=== PATIENT | female | born 1935 | race Caucasian/White ===

== ENCOUNTER 2020-04-20 19:53 | Inpatient (IN) | payer OTHER ==
--- NOTE | 2020-04-20 20:05 | PDOC ---
History of Present Illness - General Chief Complaint: Pain, Acute Stated Complaint: LEFT CHEST PAIN Time Seen by Provider: 04/20/20 20:00 History Source: Patient Exam Limitations: No Limitations - History of Present Illness Initial Comments: 84 yo F history GERD, HTN presents with L-sided chest pain for the past 1 week. It is unchanged with position, activity. Radiates to L shoulder. She has had associated nausea, but no vomiting. No diaphoresis. Pain has been constant. She had numbness in her L arm earlier today, now resolved. No prior similar symptoms in the past. No prior cardiac cath or echo. She had an EKG that was reportedly normal 1 week ago. PCP is in the [facility]. Past History - Medical History Allergies/Adverse Reactions: Allergies Allergy/AdvReac Type Severity Reaction Status Date / Time No Known Allergies Allergy Verified 04/20/20 19:54 Home Medications: Ambulatory Orders Esomeprazole Magnesium [Nexium] 0 mg PO DAILY 04/20/20 Nebivolol HCl [Bystolic] 0 mg PO DAILY 04/20/20 COPD: No CHF: No HTN: Yes - Reproductive History Is Patient Now?: No - Psycho-Social/Smoking History Smoking History: Never smoked - Substance Abuse Hx (Audit-C & DAST Scrn) How often the patient has a drink containing alcohol: Never Score: In Men: 4 or > Positive; In Women: 3 or > Positive: 0 Screen Result (Pos requires Nsg. Audit-10AR): Negative In the last yr the pt used illegal drug/Rx for NonMed reason: No Score: Yes response is considered Positive: 0 Screen Result (Positive result requires Nsg. DAST-10): Negative Review of Systems - Review of Systems Able to Perform ROS?: Yes Comments:: GENERAL/CONSTITUTIONAL: No fever or chills. No weakness. HEAD, EYES, EARS, NOSE AND THROAT: No change in vision. No ear pain or discharge. No sore throat. CARDIOVASCULAR: +Chest pain. No shortness of breath. RESPIRATORY: No cough, wheezing, or hemoptysis. GASTROINTESTINAL: +Nausea. No vomiting, diarrhea or constipation. GENITOURINARY: No dysuria, frequency, or change in urination. MUSCULOSKELETAL: No joint or muscle swelling or pain. No neck or back pain. SKIN: No rash. NEUROLOGIC: No headache, vertigo, loss of consciousness, or change in stre ngth/sensation. ENDOCRINE: No increased thirst. No abnormal weight change. HEMATOLOGIC/LYMPHATIC: No anemia, easy bleeding, or history of blood clots. ALLERGIC/IMMUNOLOGIC: No hives or skin allergy. *Physical Exam - Vital Signs Last Vital Signs Temp Pulse Resp BP Pulse Ox 98.0 F 77 18 156/80 100 04/20/20 19:54 04/20/20 19:54 04/20/20 19:54 04/20/20 20:04 04/20/20 19:54 - Physical Exam GENERAL: Awake, alert, and fully oriented, in no acute distress HEAD: No signs of trauma EYES: PERRLA, EOMI, sclera anicteric, conjunctiva clear ENT: Auricles normal inspection, hearing grossly normal, nares patent, oropharynx clear without exudates. Moist mucosa NECK: Normal ROM, supple, no lymphadenopathy, JVD, or masses LUNGS: Breath sounds equal, clear to auscultation bilaterally. No wheezes, and no crackles HEART: Regular rate and rhythm, normal S1 and S2, no murmurs, rubs or gallops ABDOMEN: Soft, nontender, normoactive bowel sounds. No guarding, no rebound. No masses EXTREMITIES: Normal range of motion, no edema. No clubbing or cyanosis. No cords, erythema, or tenderness NEUROLOGICAL: Cranial nerves II through XII grossly intact. Normal speech, normal gait. Motor and sensation intact SKIN: Warm, dry, normal turgor, no rashes or lesions noted. Heart Score/ECG Review - History History: Highly suspicious - Electrocardiogram EKG: Normal - Age Age: >/= 65 - Risk Factors Risk Factors Heart Score: Yes Hx Hypertension Based on the list above the patient has:: 1-2 risk factors - Troponin Troponin: 1-3x normal limit - Score Heart Score - Total: 6 - ECG Intrepretation Comment:: EKG read 20:14- NSR 78 bpm, no acute ST/T changes ED Treatment Course - LABORATORY CBC & Chemistry Diagram: 04/20/20 20:30 04/20/20 20:17 Medical Decision Making - Medical Decision Making 04/20/20 20:42 Patient given an ASA in the ED based on cardiac risk factors and the description of her pain, as well as that it is ongoing. Await labs. Likely admission. 04/20/20 21:18 Troponin noted to be 0.25. Will discuss case with hospitalist for admission. 04/20/20 21:52 Case d/w Dr. Mcclelland, cardiology, via phone. I will give full dose of aspirin. Second troponin to be drawn at 11pm, will contact her if it is trending upward. D/w hospitalist. 04/20/20 23:34 Second troponin pending. EMS has just arrived. 04/20/20 23:56 Second troponin 0.54, discussed with Dr. Mcclelland, patient is still ok to go to [facility]. She recommended nitro for ongoing chest pain if it continues. her BP has dropped to 150s since she came to ED, will not give nitro at the moment to avoid a precipitous drop in the ambulance. EMS is at bedside. Discharge - Discharge Information Problems reviewed: Yes Clinical Impression/Diagnosis: NSTEMI (non-ST elevated myocardial infarction) Chest pain Qualifiers: Chest pain type: unspecified Qualified Code(s): R07.9 - Chest pain, unspecified Condition: Stable - Admission Yes - Follow up/Referral - Patient Discharge Instructions - Post Discharge Activity
--- OUTSIDE RECORDS SUMMARY | 2020-04-20 20:14 | XMS ---
:1935 Author Organization [facility] Support Name Relationship Address Phone RE Unavailable Unavailable Unavailable CARLITOS BOBBY SON [address] [place] [address] Re-disclosure Warning The records that you are about to access may contain information from federally- assisted alcohol or drug abuse programs. If such information is present, then the following federally mandated warning applies: This information has been disclosed to you from records protected by federal confidentiality rules (42 CFR part 2). The federal rules prohibit you from making any further disclosure of this information unless further disclosure is expressly permitted by the written consent of the person to whom it pertains or as otherwise permitted by 42 CFR part 2. A general authorization for the release of medical or other information is NOT sufficient for this purpose. The Federal rules restrict any use of the information to criminally investigate or prosecute any alcohol or drug abuse patient.The records that you are about to access may contain highly sensitive health information, the redisclosure of which is protected by Article 27-F of the [facility] Public Health law. If you continue you may haveaccess to information: Regarding HIV / AIDS; Provided by facilities licensed or operated by the [facility] Office of Mental Health; or Provided by the [facility] Office for People With Developmental Disabilities. If such information is present, then the following [facility] mandated warning applies: This information has been disclosed to you from confidential records which are protected by state law. State law prohibits you from making any further disclosure of this information without the specific written consent of the person to whom it pertains, or as otherwise permitted by law. Any unauthorized further disclosure in violation of state law may result in a fine or prison sentence or both. A general authorization for the release of medical or other information is NOT sufficient authorization for further disclosure. Insurance Providers Payer name Policy type Policy ID Covered Covered republican's Policy P freda / Coverage republican ID relationship to [employer] Inf ormation type escobar MEDICAID [id number] SP [id number] MEDICARE [id number]
[2020-04-20] MEDS ORDERED: ASPIRIN 81 MG CHEWABLE TABLETS ONE ×2 (20:28→21:52)
[2020-04-20] MEDS ORDERED: ASPIRIN 81 MG CHEWABLE TABLETS PO ONE ×2 (20:28→21:28)
[2020-04-20 20:33] LABS: BASO % 0.7 % (0-2.0); EOS % 0.9 % (0-4.5); HEMATOCRIT 31.7 % (32.4-45.2); HEMOGLOBIN 10.7 GM/dl (10.7-15.3); LYMPH % 22.5 % (8-40); MCH 32.1 pg (25.7-33.7); MCHC 33.8 g/dl (32.0-36.0); MEAN CELL VOLUME 94.9 fl (80-96); MONO % 8.1 % (3.8-10.2); NEUT % 67.8 % (42.8-82.8); PLATELET COUNT 213 K/MM3 (134-434); RBC 3.34 M/mm3 (3.60-5.2); RDW 13.1 % (11.6-15.6); WHITE BLOOD COUNT 4.9 K/mm3 (4.0-10.8)
[2020-04-20 21:00] LABS: BILIRUBIN,TOTAL 0.5 mg/dl (0.2-1); CALCIUM 9.6 mg/dl (8.5-10); POTASSIUM 4.1 mmol/L (3.5-5.1); TOT PROT 7.5 g/dl (6.4-8.2)
--- OUTSIDE RECORDS SUMMARY | 2020-04-21 00:34 | XMS ---
:1935 Author Organization [facility] Support Name Relationship Address Phone RE Unavailable Unavailable Unavailable CARLITOS BOBBY SON [address] [place] [address] Re-disclosure Warning The records that you are [...] is protected by Article 27-F of the [facility] Public Health law. If you continue you may haveaccess to information: Regarding HIV / AIDS; Provided by facilities licensed or operated by the [facility] Office of Mental Health; or Provided by the [facility] Office for People With Developmental Disabilities. If such information is present, then the following [facility] mandated warning applies: This information has been [...] law may result in a fine or retirement sentence or both. A general authorization for the release of medical or other information is NOT sufficient authorization for further disclosure. Insurance Providers Payer name Policy type Policy ID Covered Covered constitution party's Policy P freda / Coverage constitution party ID relationship to [employer] Inf ormation type escobar MEDICARE [id number] SP [id number] MEDICAID [id number] SP [id number] MEDICARE [id number]
--- NOTE | 2020-04-21 00:44 | HP ---
CHIEF COMPLAINT: Chest Pain HISTORY OF PRESENT ILLNESS: 84 year old female with known history of GERD, hypertension who presents to the ED complaining of left sided chest pain of one week's duration. Pain is described as crampy, on and off with radiation to the left shoulder and arm, not associated with nausea, vomtiing, diaphoreiss. She had an episode of numbness of the left arm today as well. She had an EKG last week which was reported as normal. Recent Travel: none PAST MEDICAL HISTORY:as above PAST SURGICAL HISTORY: lipoma resection Family history; both parents over 50 years ago of natural causes (specific etiologies unknown to patient) Social History: Smoking:denies Alcohol:denies Drugs: denies Allergies No Known Allergies Allergy (Verified 04/20/20 19:54) HOME MEDICATIONS: Home Medications Medication Instructions Recorded Esomeprazole Magnesium [Nexium] 0 mg PO DAILY 04/20/20 Nebivolol HCl [Bystolic] 0 mg PO DAILY 04/20/20 REVIEW OF SYSTEMS CONSTITUTIONAL: Absent: fever, chills, diaphoresis, generalized weakness, malaise, loss of appetite, weight change HEENT: Absent: rhinorrhea, nasal congestion, throat pain, throat swelling, difficulty swallowing, mouth swelling, ear pain, eye pain, visual changes CARDIOVASCULAR: Absent: chest pain, syncope, palpitations, irregular heart rate, lightheadedness, peripheral edema RESPIRATORY: Absent: cough, shortness of breath, dyspnea with exertion, orthopnea, wheezing, stridor, hemoptysis GASTROINTESTINAL: Absent: abdominal pain, abdominal distension, nausea, vomiting, diarrhea, constipation, melena, hematochezia GENITOURINARY: Absent: dysuria, frequency, urgency, hesitancy, hematuria, flank pain, genital pain MUSCULOSKELETAL: Absent: myalgia, arthralgia, joint swelling, back pain, neck pain SKIN: Absent: rash, itching, pallor HEMATOLOGIC/IMMUNOLOGIC: Absent: easy bleeding, easy bruising, lymphadenopathy, frequent infections ENDOCRINE: Absent: unexplained weight gain, unexplained weight loss, heat intolerance, cold intolerance NEUROLOGIC: Absent: headache, focal weakness or paresthesias, dizziness, unsteady gait, se izure, mental status changes, bladder or bowel incontinence PSYCHIATRIC: Absent: anxiety, depression, suicidal or homicidal ideation, hallucinations. PHYSICAL EXAMINATION Vital Signs - 24 hr 04/20/20 04/20/20 04/20/20 19:54 20:04 22:00 Temperature 98.0 F 98.1 F Pulse Rate 77 Pulse Rate [ 78 Left] Respiratory 18 23 H Rate Blood Pressure 190/90 H Blood Pressure 156/80 [Left Arm] Blood Pressure 149/70 [Right Arm] O2 Sat by Pulse 100 99 Oximetry (%) GENERAL: Awake, alert, and fully oriented, in no acute distress. HEAD: Normal with no signs of trauma. EYES: Pupils equal, round and reactive to light, extraocular movements intact, sclera anicteric, conjunctiva clear. No lid lag. EARS, NOSE, THROAT: , oropharynx clear without exudates. Moist mucous membranes. NECK: Normal range of motion, supple without lymphadenopathy, JVD, or masses. LUNGS: Breath sounds equal, clear to auscultation bilaterally. No wheezes, and no crackles. No accessory muscle use. HEART: Regular rate and rhythm, normal S1 and S2 without murmur, rub or gallop. ABDOMEN: Soft, nontender, not distended, normoactive bowel sounds, no guarding, no rebound, no masses. No hepatomegaly or splenomegaly. MUSCULOSKELETAL: Normal range of motion at all joints. No bony deformities or tenderness. No CVA tenderness. UPPER EXTREMITIES: 2+ pulses, warm, well-perfused. No cyanosis. No clubbing. No peripheral edema. LOWER EXTREMITIES: 2+ pulses, warm, well-perfused. No calf tenderness. No peripheral edema. NEUROLOGICAL: Cranial nerves II-XII intact. Normal speech. Normal gait. PSYCHIATRIC: Cooperative. Good eye contact. Appropriate mood and affect. SKIN: Warm, dry, normal turgor, no rashes or lesions noted, normal capillary refill. Laboratory Results - last 24 hr 04/20/20 04/20/20 04/20/20 20:17 20:17 20:30 WBC 4.9 RBC 3.34 L Hgb 10.7 Hct 31.7 L MCV 94.9 MCH 32.1 MCHC 33.8 RDW 13.1 Plt Count 213 MPV 9.0 Absolute Neuts (auto) 3.3 Neutrophils % 67.8 Lymphocytes % 22.5 Monocytes % 8.1 Eosinophils % 0.9 Basophils % 0.7 Sodium 135 L Potassium 4.1 Chloride 103 Carbon Dioxide 24 Anion Gap 8 BUN 24.0 H Creatinine 1.0 Est GFR (CKD-EPI)AfAm 60.76 Est GFR (CKD-EPI)NonAf 52.42 Random Glucose 107 H Calcium 9.6 Total Bilirubin 0.5 AST 27 ALT 20 Alkaline Phosphatase 74 Troponin I 0.25 H Total Protein 7.5 Albumin 4.0 04/20/20 22:58 WBC RBC Hgb Hct MCV MCH MCHC RDW Plt Count MPV Absolute Neuts (auto) Neutrophils % Lymphocytes % Monocytes % Eosinophils % Basophils % Sodium Potassium Chloride Carbon Dioxide Anion Gap BUN Creatinine Est GFR (CKD-EPI)AfAm Est GFR (CKD-EPI)NonAf Random Glucose Calcium Total Bilirubin AST ALT Alkaline Phosphatase Troponin I 0.54 H Total Protein Albumin ASSESSMENT/PLAN: 1. ACS - troponins are trending up - patient chest pain free - EKG - continuous cardiac monitoring - Dr Dilia Mcclelland already consulted and aware, will see patient in am - cont bystolic - lipid profile 2. GERD - cont PPI 3. Lovenox for DVT prophylaxis Visit type - Medication Review Med list reviewed for High Risk Meds patients 65 and older: Yes - Emergency Visit Emergency Visit: Yes ED Registration Date: 04/21/20 Care time: The patient presented to the Emergency Department on the above date and was hospitalized for further evaluation of their emergent condition. - New Patient This patient is new to me today: Yes Date on this admission: 04/27/20 - Critical Care Critical Care patient: No
[2020-04-21 01:01] VITALS: BMI 22.1
[2020-04-21] MEDS ORDERED: PNEUMOC 13-VAL CONJ-DIP CRM/PF 0.5 ML DISP.SYRIN IM ONE (01:01)
[2020-04-21] MEDS ORDERED: PANTOPRAZOLE 40 MG TABLET PO SCH (07:00)
[2020-04-21] MEDS ORDERED: PT OWN MED DRAWER 7, Y5N ONE (09:15)
[2020-04-21] MEDS ORDERED: ENOXAPARIN NA (PORCINE) 40 MG/0.4 ML DISP.SYRIN SQ SCH (10:00)
[2020-04-21] MEDS ORDERED: NEBIVOLOL 5 MG TABLET (FP) PO SCH (10:00)
[2020-04-21 11:02] LABS: HEMATOCRIT 32.9 % (32.4-45.2); HEMOGLOBIN 11.3 GM/dL (10.7-15.3); MCH 32.3 pg (25.7-33.7); MCHC 34.4 g/dl (32.0-36.0); MEAN CELL VOLUME 93.7 fl (80-96); MEAN PLT VOLUME 10.9 fl (7.5-11.1); PLATELET COUNT 184 K/MM3 (134-434); RBC 3.51 M/mm3 (3.60-5.2); RDW 13.6 % (11.6-15.6); WHITE BLOOD COUNT 3.7 K/mm3 (4.0-10.0)
[2020-04-21 11:41] LABS: ANION GAP 6 MMOL/L (8-16); BLOOD UREA NITROGEN 15.5 mg/dL (7-18); CALCIUM 9.4 mg/dL (8.5-10.1); CHLORIDE 107 mmol/L (98-107); CO2 26 mmol/L (21-32); CREATININE 0.8 mg/dL (0.55-1.3); GLUCOSE,RANDOM 79 mg/dL (74-106); POTASSIUM 4.1 mmol/L (3.5-5.1); SODIUM 140 mmol/L (136-145)
--- NOTE | 2020-04-21 11:52 | EKG ---
Test Reason : Blood Pressure : / mmHG Vent. Rate : 078 BPM Atrial Rate : 078 BPM P-R Int : 162 ms QRS Dur : 082 ms QT Int : 364 ms P-R-T Axes : 073 -02 029 degrees QTc Int : 414 ms NORMAL SINUS RHYTHM NORMAL ECG NO PREVIOUS ECGS AVAILABLE Confirmed by ANNEMARIE HUERTAS MD ([id number]) on 04/21/2020 11:51:59 AM Referred By: KALINA FAUST Confirmed By:ANNEMARIE HUERTAS MD
[2020-04-21] MEDS ORDERED: REGADENOSON 0.4 MG/5 ML PRE-FILLED SYRINGE IVPUSH ONE ×2 (12:04→12:30)
--- NOTE | 2020-04-21 12:27 | ECHO ---
Name: KANU MICHELLE Exam:Adult Echocardiogram Study Date: 04/21/2020 11:26 AM Age: 84 yrs Height: 66 in Weight: 136 lb BSA: 1.7 m2 MMode/2D Measurements & Calculations IVSd: 1.1 cm Ao root diam: 2.4 cm LVIDd: 3.5 cm LA dimension: 3.3 cm LVIDs: 2.5 cm LVPWd: 1.2 cm LVPWs: 1.7 cm EDV(Teich): 49.4 ml ESV(Teich): 21.8 ml LVOT diam: 1.9 cm LAV (MOD-bp): 50.0 ml TAPSE: 1.5 cm RV S Reilly: 8.4 cm/sec Doppler Measurements & Calculations MV V2 max: 96.5 cm/sec MV E max reilly: 58.2 cm/sec MV max P.7 mmHg MV A max reilly: 85.9 cm/sec MV V2 mean: 69.9 cm/sec MV E/A: 0.68 MV mean P.1 mmHg MV dec time: 0.20 sec MV V2 VTI: 31.8 cm Ao V2 max: 133.5 cm/sec AI max reilly: 438.6 cm/sec Ao max P.1 mmHg AI max P.0 mmHg AI P1/2t: 486.7 msec AI dec slope: 264.0 cm/sec2 CHRISTOPHER(V,D): 2.2 cm2 LV V1 max P.1 mmHg MR max reilly: 319.7 cm/sec LV V1 max: 100.7 cm/sec MR max P.9 mmHg TR max reilly: 207.1 cm/sec PA V2 max: 97.1 cm/sec TR max P.2 mmHg PA max P.8 mmHg Med Peak E' Reilly: 5.5 cm/sec Med E/e': 10.6 Lat Peak E' Reilly: 7.9 cm/sec Lat E/e': 7.4 Procedure A complete two-dimensional transthoracic echocardiogram was performed (2D, M-mode, Doppler and color flow Doppler). Left Ventricle The left ventricle is normal in size. Left ventricular systolic function is normal. Ejection Fraction = 60- 65%. No regional wall motion abnormalities noted. Right Ventricle The right ventricle is normal size. The right ventricular systolic function is normal. Atria The left atrial size is normal. Right atrial size is normal. Mitral Valve There is mild mitral annular calcification. There is mild mitral regurgitation. Tricuspid Valve The tricuspid valve is normal in structure and function. There is mild tricuspid regurgitation. Aortic Valve There is mild aortic sclerosis.;. Mild aortic regurgitation. Pulmonic Valve The pulmonic valve is not well visualized. Great Vessels The aortic root is normal size. Pericardium/Pleura There is no pericardial effusion. Interpretation Summary The left ventricle is normal in size. Left ventricular systolic function is normal. No regional wall motion abnormalities noted. Ejection Fraction = 60-65%. There is mild mitral annular calcification. There is mild mitral regurgitation. There is mild tricuspid regurgitation. There is mild aortic sclerosis. Mild aortic regurgitation. There is no pericardial effusion. Rickey Braun MD 04/21/2020 12:27 PM
--- NOTE | 2020-04-21 12:37 | CON.CARD ---
Cardiology Consult (text) - Consultation Consultation Note: cc: cp hpi: 84 f hx htn, gerd, here with cp. Past week she has noticed cp. Mild, left sided, feels like burning, moves to left shoulder, no associated sxs. No exertional sxs. Worse with pushing on chest wall. No hx hrt dz. No sob palps dizzy loc pnd orthopnea le edema. pmh: per hpi psh: none social: no tob fam: no premature cad ros: per hpi; all others nl meds: Home Medications Medication Instructions Recorded Esomeprazole Magnesium [Nexium] 0 mg PO DAILY 04/20/20 Nebivolol HCl [Bystolic] 0 mg PO DAILY 04/20/20 pe: Vital Signs Period Temp Pulse Resp BP Sys/Quispe Pulse Ox Last 24 Hr 97.8 F-98.8 F 65-85 14-23 117-190/51-90 95-100 nad no jvd rrr s1s2 no mrg cta bl nl eff aao3 no le e/c/c abd nt nd pos bs no jaundice diaphoresis pos dp pt no carotid bruits +chest wall tenderness Laboratory Last Values WBC 3.7 K/mm3 (4.0-10.0) L 04/21/20 06:05 RBC 3.51 M/mm3 (3.60-5.2) L 04/21/20 06:05 Hgb 11.3 GM/dL (10.7-15.3) 04/21/20 06:05 Hct 32.9 % (32.4-45.2) 04/21/20 06:05 MCV 93.7 fl (80-96) 04/21/20 06:05 MCH 32.3 pg (25.7-33.7) 04/21/20 06:05 MCHC 34.4 g/dl (32.0-36.0) 04/21/20 06:05 RDW 13.6 % (11.6-15.6) 04/21/20 06:05 Plt Count 184 K/MM3 (134-434) 04/21/20 06:05 MPV 10.9 fl (7.5-11.1) 04/21/20 06:05 Absolute Neuts (auto) 3.3 K/mm3 04/20/20 20:30 Neutrophils % 67.8 % (42.8-82.8) 04/20/20 20:30 Lymphocytes % 22.5 % (8-40) 04/20/20 20:30 Monocytes % 8.1 % (3.8-10.2) 04/20/20 20:30 Eosinophils % 0.9 % (0-4.5) 04/20/20 20:30 Basophils % 0.7 % (0-2.0) 04/20/20 20:30 Sodium 140 mmol/L (136-145) 04/21/20 06:05 Sodium Cancelled 04/21/20 06:05 Potassium 4.1 mmol/L (3.5-5.1) 04/21/20 06:05 Potassium Cancelled 04/21/20 06:05 Chloride 107 mmol/L (98-107) 04/21/20 06:05 Chloride Cancelled 04/21/20 06:05 Carbon Dioxide 26 mmol/L (21-32) 04/21/20 06:05 Carbon Dioxide Cancelled 04/21/20 06:05 Anion Gap 6 MMOL/L (8-16) L 04/21/20 06:05 Anion Gap Cancelled 04/21/20 06:05 BUN 15.5 mg/dL (7-18) 04/21/20 06:05 BUN Cancelled 04/21/20 06:05 Creatinine 0.8 mg/dL (0.55-1.3) 04/21/20 06:05 Creatinine Cancelled 04/21/20 06:05 Est GFR (CKD-EPI)AfAm 79.57 04/21/20 06:05 Est GFR (CKD-EPI)AfAm Cancelled 04/21/20 06:05 Est GFR (CKD-EPI)NonAf 68.66 04/21/20 06:05 Est GFR (CKD-EPI)NonAf Cancelled 04/21/20 06:05 Random Glucose 79 mg/dL (74-106) 04/21/20 06:05 Random Glucose Cancelled 04/21/20 06:05 Calcium 9.4 mg/dL (8.5-10.1) 04/21/20 06:05 Calcium Cancelled 04/21/20 06:05 Total Bilirubin 0.5 mg/dl (0.2-1) 04/20/20 20:17 AST 27 U/L (15-37) 04/20/20 20:17 ALT 20 U/L (13-61) 04/20/20 20:17 Alkaline Phosphatase 74 U/L (45-117) 04/20/20 20:17 Troponin I < 0.02 ng/ml (0.00-0.05) 04/21/20 06:05 Total Protein 7.5 g/dl (6.4-8.2) 04/20/20 20:17 Albumin 4.0 g/dl (3.4-5.0) 04/20/20 20:17 tele: sr ecg: sr nl intervals no ischemic changes cxr: clear a/p: 84 f hx htn, gerd, here with cp. cp, elevated trops: -atypical features -ecg, echo unremarkable -trop borderline with flat trend, not c/w acs -will eval further with nuclear stress test, if benign then ok for dc from cardiac pov htn: -stable, cont home bb gerd: -stable sxs
--- NOTE | 2020-04-21 13:42 | PN ---
Teaching Attending Note Name of Resident: Zoya Rollins ATTENDING PHYSICIAN STATEMENT I saw and evaluated the patient. I reviewed the resident's note and discussed the case with the resident. I agree with the resident's findings and plan as documented. SUBJECTIVE: No further CP. Feels well, eating OBJECTIVE: Afebrile, Hemodynamically Stable. Last Vital Signs Temp Pulse Resp BP Pulse Ox 98.8 F 85 18 124/51 L 100 04/21/20 09:27 04/21/20 09:27 04/21/20 09:27 04/21/20 09:27 04/21/20 09:27 HEENT - Atraumatic, Normocephalic. Heart - S1, S2, soft SM Lungs - clear to auscultation Abdomen - soft, non-tender. Bowel Sounds normal. Extremities - no edema, varicosities, no calf tenderness. Neuro - AAO x 3. Tone/Power normal. Laboratory Results - last 24 hr 04/20/20 04/20/20 04/20/20 20:17 20:17 20:30 WBC 4.9 RBC 3.34 L Hgb 10.7 Hct 31.7 L MCV 94.9 MCH 32.1 MCHC 33.8 RDW 13.1 Plt Count 213 MPV 9.0 Absolute Neuts (auto) 3.3 Neutrophils % 67.8 Lymphocytes % 22.5 Monocytes % 8.1 Eosinophils % 0.9 Basophils % 0.7 Sodium 135 L Potassium 4.1 Chloride 103 Carbon Dioxide 24 Anion Gap 8 BUN 24.0 H Creatinine 1.0 Est GFR (CKD-EPI)AfAm 60.76 Est GFR (CKD-EPI)NonAf 52.42 Random Glucose 107 H Calcium 9.6 Total Bilirubin 0.5 AST 27 ALT 20 Alkaline Phosphatase 74 Troponin I 0.25 H Total Protein 7.5 Albumin 4.0 04/20/20 04/21/20 04/21/20 22:58 06:05 06:05 WBC 3.7 L RBC 3.51 L Hgb 11.3 Hct 32.9 MCV 93.7 MCH 32.3 MCHC 34.4 RDW 13.6 Plt Count 184 MPV 10.9 Absolute Neuts (auto) Neutrophils % Lymphocytes % Monocytes % Eosinophils % Basophils % Sodium 140 Potassium 4.1 Chloride 107 Carbon Dioxide 26 Anion Gap 6 L BUN 15.5 Creatinine 0.8 Est GFR (CKD-EPI)AfAm 79.57 Est GFR (CKD-EPI)NonAf 68.66 Random Glucose 79 Calcium 9.4 Total Bilirubin AST ALT Alkaline Phosphatase Troponin I 0.54 H < 0.02 Total Protein Albumin 04/21/20 06:05 WBC RBC Hgb Hct MCV MCH MCHC RDW Plt Count MPV Absolute Neuts (auto) Neutrophils % Lymphocytes % Monocytes % Eosinophils % Basophils % Sodium Cancelled Potassium Cancelled Chloride Cancelled Carbon Dioxide Cancelled Anion Gap Cancelled BUN Cancelled Creatinine Cancelled Est GFR (CKD-EPI)AfAm Cancelled Est GFR (CKD-EPI)NonAf Cancelled Random Glucose Cancelled Calcium Cancelled Total Bilirubin AST ALT Alkaline Phosphatase Troponin I Total Protein Albumin Current Medications Generic Name Dose Route Start Last Admin Trade Name Freq PRN Reason Stop Dose Admin Enoxaparin Sodium 40 mg 04/21/20 10:00 04/21/20 09:26 Lovenox - SQ 40 mg DAILY ERIK Administration Nebivolol 5 mg 04/21/20 10:00 04/21/20 09:26 Bystolic - PO 5 mg DAILY ERIK Administration Pantoprazole Sodium 40 mg 04/21/20 07:00 04/21/20 06:24 Protonix - PO 40 mg ACBK ERIK Administration Pneumococcal 13-Valent Conj Vacc 0.5 ml 04/21/20 01:01 Prevnar 13 Syringe - IM 04/21/20 01:02 .ONCE ONE Home Medications Medication Instructions Recorded Esomeprazole Magnesium [Nexium] 0 mg PO DAILY 04/20/20 Nebivolol HCl [Bystolic] 5 mg PO DAILY 04/20/20 Celecoxib [Celebrex] 200 mg DAILY 04/21/20 Cholecalciferol (Vitamin D3) 5,000 dose WEEKLY 04/21/20 [Vitamin D3] Zolpidem Tartrate [Ambien] 5 mg HS 04/21/20 ASSESSMENT AND PLAN: 84 year old female with history of HTN, GERD, presents with complaints of 1 week history of intermittent L sided chest pain, radiating to L shoulder. 1. Chest Pain - possible ACS - NSTEMi vs Unastable Angina ECG - SR, no acute changes TropI max 0.54 Evaluated by Cardio - for Stress test today - clear for discharge if negative. Continue Nebivolol. 2. GERD - Continue PPI. 3. HTN - Continue Nebivolol DVT Px - Lovenox SQ
--- NOTE | 2020-04-21 15:04 | PN ---
Physical Exam: SUBJECTIVE: Patient seen and examined. OBJECTIVE: Vital Signs Period Temp Pulse Resp BP Sys/Quispe Pulse Ox Last 24 Hr 97.8 F-98.8 F 65-85 14-23 117-190/51-90 95-100 GENERAL: The patient is awake, alert, and fully oriented, in no acute distress. HEAD: Normal with no signs of trauma. EYES: PERRL, extraocular movements intact, sclera anicteric, conjunctiva clear. No ptosis. ENT: Ears normal, nares patent, oropharynx clear without exudates, moist mucous membranes. NECK: Trachea midline, full range of motion, supple. LUNGS: Breath sounds equal, clear to auscultation bilaterally, no wheezes, no crackles, no accessory muscle use. HEART: Regular rate and rhythm, S1, S2 without murmur, rub or gallop. ABDOMEN: Soft, nontender, nondistended, normoactive bowel sounds, no guarding, no rebound, no hepatosplenomegaly, no masses. Shoulder pain and decreaesd ROM. EXTREMITIES: 2+ pulses, warm, well-perfused, no edema. NEUROLOGICAL: Cranial nerves II through XII grossly intact. Normal speech, gait not observed. PSYCH: Normal mood, normal affect. SKIN: Warm, dry, normal turgor, no rashes or lesions noted Laboratory Results - last 24 hr 04/20/20 04/20/20 04/20/20 20:17 20:17 20:30 WBC 4.9 RBC 3.34 L Hgb 10.7 Hct 31.7 L MCV 94.9 MCH 32.1 MCHC 33.8 RDW 13.1 Plt Count 213 MPV 9.0 Absolute Neuts (auto) 3.3 Neutrophils % 67.8 Lymphocytes % 22.5 Monocytes % 8.1 Eosinophils % 0.9 Basophils % 0.7 Sodium 135 L Potassium 4.1 Chloride 103 Carbon Dioxide 24 Anion Gap 8 BUN 24.0 H Creatinine 1.0 Est GFR (CKD-EPI)AfAm 60.76 Est GFR (CKD-EPI)NonAf 52.42 Random Glucose 107 H Calcium 9.6 Total Bilirubin 0.5 AST 27 ALT 20 Alkaline Phosphatase 74 Troponin I 0.25 H Total Protein 7.5 Albumin 4.0 04/20/20 04/21/20 04/21/20 22:58 06:05 06:05 WBC 3.7 L RBC 3.51 L Hgb 11.3 Hct 32.9 MCV 93.7 MCH 32.3 MCHC 34.4 RDW 13.6 Plt Count 184 MPV 10.9 Absolute Neuts (auto) Neutrophils % Lymphocytes % Monocytes % Eosinophils % Basophils % Sodium 140 Potassium 4.1 Chloride 107 Carbon Dioxide 26 Anion Gap 6 L BUN 15.5 Creatinine 0.8 Est GFR (CKD-EPI)AfAm 79.57 Est GFR (CKD-EPI)NonAf 68.66 Random Glucose 79 Calcium 9.4 Total Bilirubin AST ALT Alkaline Phosphatase Troponin I 0.54 H < 0.02 Total Protein Albumin 04/21/20 06:05 WBC RBC Hgb Hct MCV MCH MCHC RDW Plt Count MPV Absolute Neuts (auto) Neutrophils % Lymphocytes % Monocytes % Eosinophils % Basophils % Sodium Cancelled Potassium Cancelled Chloride Cancelled Carbon Dioxide Cancelled Anion Gap Cancelled BUN Cancelled Creatinine Cancelled Est GFR (CKD-EPI)AfAm Cancelled Est GFR (CKD-EPI)NonAf Cancelled Random Glucose Cancelled Calcium Cancelled Total Bilirubin AST ALT Alkaline Phosphatase Troponin I Total Protein Albumin Active Medications Generic Name Dose Route Start Last Admin Trade Name Freq PRN Reason Stop Dose Admin Enoxaparin Sodium 40 mg 04/21/20 10:00 04/21/20 09:26 Lovenox - SQ 40 mg DAILY ERIK Administration Nebivolol 5 mg 04/21/20 10:00 04/21/20 09:26 Bystolic - PO 5 mg DAILY ERIK Administration Pantoprazole Sodium 40 mg 04/21/20 07:00 04/21/20 06:24 Protonix - PO 40 mg ACBK ERIK Administration Pneumococcal 13-Valent Conj Vacc 0.5 ml 04/21/20 01:01 Prevnar 13 Syringe - IM 04/21/20 01:02 .ONCE ONE ASSESSMENT/PLAN: Pt is a 84 year old female with PMHx of HTN, GERD presenting with 1 week intermittent L sided chest pain, radiating to L shoulder admitted for rule out ACS. Chest pain, rule out ACS -Trops 0.25 to 0.54 to 0.02, peak 0.54 but downtrended -EKG with no acute changes -evaluated by cardio, stress test today; if normal ok for dc per cardio -continue nebivolol Hx of GERD Cont protonix Hx of HTN -cont Nebivolol PPx Lovenox 40mg SQ FEN NPO for possible cath Monitor lytes No standing fluids Dispo Admitted to tele. Evaluation by Cardio. Rule out ACS. ATTENDING PHYSICIAN STATEMENT I saw and evaluated the patient. I reviewed the resident's note and discussed the case with the resident. I agree with the resident's findings and plan as documented. SUBJECTIVE: OBJECTIVE: ASSESSMENT AND PLAN:
[2020-04-21 15:12] VITALS: TEMP 98
--- NOTE | 2020-04-21 16:49 | DS ---
Physical Exam: SUBJECTIVE: Patient seen and examined OBJECTIVE: Vital Signs Period Temp Pulse Resp BP Sys/Quispe Pulse Ox Last 24 Hr 97.8 F-98.8 F 63-85 14-23 90-190/51-90 95-100 PHYSICAL EXAM GENERAL: The patient is awake, alert, and fully oriented, in no acute distress. HEAD: Normal with no signs of trauma. EYES: PERRL, extraocular movements intact, sclera anicteric, conjunctiva clear. ENT: Ears normal, nares patent, oropharynx clear without exudates, moist mucous membranes. NECK: Trachea midline, full range of motion, supple. LUNGS: Breath sounds equal, clear to auscultation bilaterally, no wheezes, no crackles, no accessory muscle use. HEART: Regular rate and rhythm, S1, S2 without murmur, rub or gallop. ABDOMEN: Soft, nontender, nondistended, normoactive bowel sounds, no guarding, no rebound, no hepatosplenomegaly, no masses. EXTREMITIES: 2+ pulses, warm, well-perfused, no edema. NEUROLOGICAL: Cranial nerves II through XII grossly intact. Normal speech, gait not observed. PSYCH: Normal mood, normal affect. SKIN: Warm, dry, normal turgor, no rashes or lesions noted. LABS Laboratory Results - last 24 hr 04/20/20 04/20/20 04/20/20 20:17 20:17 20:30 WBC 4.9 RBC 3.34 L Hgb 10.7 Hct 31.7 L MCV 94.9 MCH 32.1 MCHC 33.8 RDW 13.1 Plt Count 213 MPV 9.0 Absolute Neuts (auto) 3.3 Neutrophils % 67.8 Lymphocytes % 22.5 Monocytes % 8.1 Eosinophils % 0.9 Basophils % 0.7 Sodium 135 L Potassium 4.1 Chloride 103 Carbon Dioxide 24 Anion Gap 8 BUN 24.0 H Creatinine 1.0 Est GFR (CKD-EPI)AfAm 60.76 Est GFR (CKD-EPI)NonAf 52.42 Random Glucose 107 H Calcium 9.6 Total Bilirubin 0.5 AST 27 ALT 20 Alkaline Phosphatase 74 Troponin I 0.25 H Total Protein 7.5 Albumin 4.0 04/20/20 04/21/20 04/21/20 22:58 06:05 06:05 WBC 3.7 L RBC 3.51 L Hgb 11.3 Hct 32.9 MCV 93.7 MCH 32.3 MCHC 34.4 RDW 13.6 Plt Count 184 MPV 10.9 Absolute Neuts (auto) Neutrophils % Lymphocytes % Monocytes % Eosinophils % Basophils % Sodium 140 Potassium 4.1 Chloride 107 Carbon Dioxide 26 Anion Gap 6 L BUN 15.5 Creatinine 0.8 Est GFR (CKD-EPI)AfAm 79.57 Est GFR (CKD-EPI)NonAf 68.66 Random Glucose 79 Calcium 9.4 Total Bilirubin AST ALT Alkaline Phosphatase Troponin I 0.54 H < 0.02 Total Protein Albumin 04/21/20 06:05 WBC RBC Hgb Hct MCV MCH MCHC RDW Plt Count MPV Absolute Neuts (auto) Neutrophils % Lymphocytes % Monocytes % Eosinophils % Basophils % Sodium Cancelled Potassium Cancelled Chloride Cancelled Carbon Dioxide Cancelled Anion Gap Cancelled BUN Cancelled Creatinine Cancelled Est GFR (CKD-EPI)AfAm Cancelled Est GFR (CKD-EPI)NonAf Cancelled Random Glucose Cancelled Calcium Cancelled Total Bilirubin AST ALT Alkaline Phosphatase Troponin I Total Protein Albumin HOSPITAL COURSE: Date of Admission:04/21/20 Date of Discharge: 04/21/20 Minutes to complete discharge: 36 Discharge Summary Problems reviewed: Yes Reason For Visit: CHEST PAIN Current Active Problems Chest pain (Acute) NSTEMI (non-ST elevated myocardial infarction) (Acute) Condition: Good - Instructions Diet, Activity, Other Instructions: You came to the hospital because you were having chest pain. Your lab work showed that you may have had some temporary heart damange. You had a stress test which showed no abnormalities, and that you were receiving enough blood supply to your heart. You had an ultrasound of your heart (echocardiogram) which did not show any significant abnormalities. You will need to follow up with the marketing operations manager. Medications Please resume all home medications as prescribed. Follow Ups 1. Primary care physician, [facility], within 1 week for overall health care management. 2. Chief Of Hospital Medicine, Dr. Goldberg, within 1 week for follow up on your heart. If you have any new, worsening or changing symptoms, please return to the ED or call 911. Referrals: [facility] [place] [facility] [place] [Provider Group] Ruel Goldberg MD [Staff Physician] - Disposition: HOME - Home Medications Comprehensive Discharge Medication List: Ambulatory Orders Esomeprazole Magnesium [Nexium] 0 mg PO DAILY 04/20/20 Nebivolol HCl [Bystolic] 5 mg PO DAILY 04/20/20 Celecoxib [Celebrex] 200 mg DAILY 04/21/20 Cholecalciferol (Vitamin D3) [Vitamin D3] 5,000 dose WEEKLY 04/21/20 Zolpidem Tartrate [Ambien] 5 mg HS 04/21/20 ATTENDING PHYSICIAN STATEMENT I saw and evaluated the patient. I reviewed the resident's note and discussed the case with the resident. I agree with the resident's findings and plan as documented. SUBJECTIVE: OBJECTIVE: ASSESSMENT AND PLAN:
[2020-04-21 18:31] VITALS: BP 135/84; PULSE 68
== END 2020-04-21 20:04 | disposition home or self-care (01) | DRG 313 ==
LOC: FER 19:53 → JICU 04-21 00:31
PROVIDERS: ADMIT Internal Medicine
DX: R07.89 Other chest pain (principal); K21.9 Gastro-esophageal reflux disease without esophagitis; I10 Essential (primary) hypertension
CPT/HCPCS: 36415; 71045-TC-FY; 78452-TC; 80048; 80053; 84484; 85025; 85027; 93005; 93017; 93306-TC; 99285-25; A9502; C9803; J2785; U0003

== ENCOUNTER 2020-08-21 14:18 | Emergency (ER) | payer OTHER ==
[2020-08-21 14:43] VITALS: BMI 21.6
[2020-08-21] MEDS ORDERED: BAMLANIVIMAB 700 MG in SODIUM CHLORIDE 250 ML IVPB ONE (15:12)
[2020-08-21 16:30] LABS: HEMATOCRIT 32.2 % (32.4-45.2); HEMOGLOBIN 10.8 GM/dL (10.7-15.3); MCH 31.4 pg (25.7-33.7); MCHC 33.5 g/dl (32.0-36.0); MEAN CELL VOLUME 93.6 fl (80-96); PLATELET COUNT 186 K/MM3 (134-434); RBC 3.44 M/mm3 (3.60-5.2); RDW 13.7 % (11.6-15.6); WHITE BLOOD COUNT 3.6 K/mm3 (4.0-10.0)
[2020-08-21 16:58] LABS: POTASSIUM 3.9 mmol/L (3.5-5.1)
[2020-08-21 16:59] LABS: CALCIUM 9.2 mg/dL (8.5-10.1)
[2020-08-21 17:00] LABS: BLOOD UREA NITROGEN 17.8 mg/dL (7-18)
[2020-08-21 18:09] VITALS: BP 111/54; PULSE 69
[2020-08-21 18:35] VITALS: TEMP 98.7
== END 2020-08-21 19:37 | disposition home or self-care (01) ==
LOC: JCOVINFU 14:18
DX: U07.1 COVID-19 (principal)
CPT/HCPCS: 36415; 80048; 85027; 99284-25; M0239; Q0239